=== PATIENT | female | born 1980 | race Caucasian/White ===

== ENCOUNTER 2025-02-14 19:02 | Outpatient (REF) | payer BC, SELFPAY ==
[2025-02-17 09:08] LABS: Age Gdln ACOG Testing Note (.); HPV Aptima Negative (Negative); IGP, Aptima HPV, rfx 16/18,45 Note (.)
== END 2025-02-14 19:03 | disposition home or self-care (01) ==
LOC: LAB 19:02
PROVIDERS: Visit Provider Physician Assistant
DX: Z01.419 Encounter for gynecological examination (general) (routine) without abnormal findings (principal)
CPT/HCPCS: 87624; 88175

== ENCOUNTER 2025-03-14 09:55 | Outpatient (OUT) | payer BC, SELFPAY ==
--- OUTSIDE RECORDS SUMMARY | 2025-03-14 09:59 | XMS_ITS | Encounter Summary ---
Author Organization [facility] Address [address] [facility] [place] [address] Care Team Providers Care Captain Waiter Name Role Phone Rolando Delgado DO Primary Care Provider Encounter Details Date Type Department Care Team (Late st Contact Info) Description 02/23/2025 Orders Only [facility] [address] [place] [id number] Dai Diego MS Social History Tobacco Use Types Packs/Day Years Used Date Smoking Tobacco: Never Smokeless Tobacco: Never Alcohol Use Standard Drinks/Week Comments Yes 2 (1 standard drink = 0.6 oz pur e alcohol) Comments Unknown Sex and Gender Information Value Date Recorded Sex Assigned at Not on file Legal Sex Female 7:02 PM EDT Gender Identity Not on file Sexual Orientation Not on file documented as of this encounter Plan of Treatment Not on file documented as of this encounter Procedures Procedure Name Priority Date/Time Associated Diagnosis Comments PAP SMEAR Routine 02/14/2025 12:00 AM EDT documented in this encounter Results * Pap Smear (02/14/2025 12:00 AM EDT) Swab Cervical swab / Unknown us [facility] CYTOLOGY ORDERABLES Final Re sult EXTERNAL LAB documented in this encounter Visit Diagnoses Not on filedocumented in this encounter Care Teams Captain Waiter Relationship Specialty Start Date End Date Rolando Delgado DO [address] [place] [address] PCP - General 05/14/23 documented as of this encounter
--- OUTSIDE RECORDS SUMMARY | 2025-03-14 09:59 | XMS_ITS | Clinical Summary ---
Author Organization [facility] Address [address] [place] [address] Care Team Providers Care Colorectal Surgeon Name Role Phone Rolando Delgado Primary Care Provider Allergies No known active allergies Medications oxybutynin XL (Ditropan-XL) 15 MG 24 hr tablet Take 15 mg by mouth Daily Do not crush, chew, or split. Active Desvenlafaxine ER 50 MG tablet sustained-releas e 24 hour Active meloxicam (Mobic) 15 MG tablet See Instruction s, TAKE 1 TABLET BY MOUTH EVERY DAY, # 30 tab(s), Refills(s) 0, Pharmacy: [id number], 155, cm, 11/18/24 9:00:00 EDT, Height/Evelyn th Dosing, 64.8, kg, 11/18/24 9:00:00 EDT, Weight Dosing 01/17/2025 Active fexofenadine (Lou) 60 MG tablet Take 60 mg by mouth Daily Active Encounters Date Type Department Care Team Description 02/23/2025 Orders Only [facility] [address] [place] [address] Dai Diego MA 02/14/2025 2:00 PM EDT Office Visit [facility] [address] [place] [address] Margy Melchor PA Well woman exam with routine gynecological exam; Encounter for screening mammogram for malignant neoplasm of breast; Urinary frequency 02/14/2025 Clinisync Result Encounter [facility] External Department Unsolicited Margy Melchor PA 02/14/2025 Bamboo flowsheet [facility] [address] [place] [address] Margy Melchor PA 02/13/2025 Travel from Last 3 Months Family History Medical History Relation Name Comments Diabetes Father Pepito Willis Migraines Mother Macrina Pequea Relation Name Status Comments Father Pepito Pequea Alive Mother Macrina Pequea Alive Social History Tobacco Use Types Packs/Day Years Used Date Smoking Tobacco: Never Smokeless Tobacco: Never Tobacco Cessation:Counseling Given: Not Answered Alcohol Use Standard Drinks/Week Comments Yes 2 (1 standard drink = 0.6 oz pur e alcohol) Comments Unknown Sex and Gender Information Value Date Recorded Sex Assigned at Not on file Legal Sex Female 7:02 PM EDT Gender Identity Not on file Sexual Orientation Not on file Last Filed Vital Signs Vital Sign Reading Time Taken Comments Blood Pressure 108/80 02/14/2025 2:28 PM EDT Pulse - - Temperature - - Respiratory Rate - - Oxygen Saturation - - Inhaled Oxygen Concentration - - Weight 65.7 kg (144 lb 12 oz) 02/14/2025 2:28 PM EDT Height - - Body Mass Index - - Plan of Treatment Health Maintenance Due Date Last Done Comments HPV/Cotest 2011 Mammogram 2021 Influenza Vaccine (#1) 2025 Cervical Cancer Screening 02/15/2028 Pap Smear 02/15/2028 02/14/2025 Procedures Procedure Name Priority Date/Time Associated Diagnosis Comments IGP,APTIMA HPV,AGE GDLN Routine 02/14/2025 2:11 PM EDT PAP SMEAR Routine 02/14/2025 12:00 AM EDT from Last 3 Months Results * IGP,APTIMA HPV,AGE GDLN (02/14/2025 2:11 PM EDT) AGE GDLN ACOG TESTING Note . [facility] Comment: TESTS RESULT FLAG UNITS REF RANGE LAB Clinician Provided Cytology Information Source.............Vagina No. of containers..01 ThinPrep Vial Age Maxine CLIFTON Helen... 3065 01 FLAG LEGEND: L-Low Normal,H-High Normal,LL-Alert Low,HH-Alert High <-Panic Low,>-Panic High,A-Abnormal,AA-Critical Abnormal Performed at: 01 =G [facility] [address] [place] [address] Sharon Vickers MD, IGP, APTIMA HPV, RFX 16/18,45 Note . [facility] Comment: TESTS RESULT FLAG UNITS REF RANGE LAB DIAGNOSIS: 02 NEGATIVE FOR INTRAEPITHELIAL LESION OR MALIGNANCY. Specimen adequacy: 02 Satisfactory for evaluation. No endocervical component is identified. Performed by: 02 Alexandra Valverde, Commissary Manager . 02 Note: Note 02 The Pap smear is a screening test designed to aid in the detection of premalignant and malignant conditions of the uterine cervix. It is not a diagnostic procedure and should not be used as the sole means of detecting cervical cancer. Both false-positive and false-negative reports do occur. Test Methodology: Note 02 This liquid based ThinPrep(R) pap test was screened with the use of an image guided system. HPV Genotype Reflex Note 02 Criteria not met, HPV Genotype not performed. FLAG LEGEND: L-Low Normal,H-High Normal,LL-Alert Low,HH-Alert High <-Panic Low,>-Panic High,A-Abnormal,AA-Critical Abnormal Performed at: [address] [id number] Sharon Vickers MD, HPV APTIMA Negative Negative [facility] Comment: This nucleic acid amplification test detects fourteen high- risk HPV types (16,18,31,33,35,39,45,51,52,56,58,59,66,68) without differentiation. Performed at: =[facility] [id number] Co[place] Drawer Hand: Sharon Vickers MD, Phone: [phone] Performed at: [address] [id number] Co[place] Drawer Hand: Sharon Vickers MD, Phone: [phone] 02/14/2025 2:11 PM EDT 02/14/2025 9:03 PM EDT Narrative [facility] - 02/17/2025 9:08 AM EDT SPATULA-ALONE VAGINA [facility] BLOOD ORDERABLES Final Resul t Performing Organization Address [facility]/ZIP Co de Phone Number [facility] TB * Pap Smear (02/14/2025 12:00 AM EDT) Swab Cervical swab / Unknown [facility] CYTOLOGY ORDERABLES Final Re sult Performing Organization Address [facility]/ZIP Co de Phone Number EXTERNAL LAB from Last 3 Months Insurance BCBS Care Teams Colorectal Surgeon Relationship Specialty Start Date End Date Rolando Delgado DO [facility] [facility] [address] [place] [address] PCP - General 05/14/23
--- OUTSIDE RECORDS SUMMARY | 2025-03-14 09:59 | XMS_ITS | Continuity of Care Document ---
Author Organization [facility] Address [address] [place] [id number] Insurance Providers Payer Plan Claims Address Claims Phone Policy Number Group Number Relation Employer Guarantor Name Guarantor Guarantor Address Guarantor Phone [employer] [id number] Self Argenis Murphy 1980 [address] [place] [address] [employer] [place] [address], [place] [address] tel:[phone] [id number] Self Argenis Murphy 1980 [address] [place] [address] Denta l [employer] [facility] Care[employer] our[employer] [address], [place] [address] tel:[phone] [facility] [id number] Self Argenis Murphy 1980 [address] [place] [address] Problems Condition ICD9 code ICD10 code SNOMED code Start Date End Date S tatus Encounter for screening for other metabolic disorders Z13.228 Results No Results Allergies, adverse reactions, alerts No known allergies and adverse reactions Medications No administered medications reported Vital Signs No vital signs reported Social History No smoking Hx information available
--- NOTE | 2025-03-14 10:04 | MM_ITS ---
Patient Name: CHELSEA MONTES MR#: [id number] : 1980 Exam Date: 03/14/2025 Ordering Doctor: CLARA BROWN . RADIOLOGY REPORT PROCEDURE: MM TOMOSYNTHESIS SCREENING BI COMPARISON: None. INDICATIONS: Screening Calculator Name NCI Breast Cancer Risk Assessment Tool 5 Year Breast Cancer Risk 0.50% Lifetime Breast Cancer Risk 7.10% Personal Breast Cancer No Personal Ovarian Cancer No Treatments None Family Cancers None LOCATION: [facility] BREAST COMPOSITION: There are scattered areas of fibroglandular density. FINDINGS: DIAGNOSTIC CATEGORY 0--INCOMPLETE: NEED ADDITIONAL IMAGING EVALUATION. RIGHT BREAST: No significant suspicious finding. LEFT BREAST: Focal asymmetry upper inner quadrant left breast, middle depth. RECOMMENDATIONS: ADDITIONAL MAMMOGRAPHIC VIEWS REQUIRED: LEFT BREAST - spot-compression/true lateral views, possible ultrasound recommended. PLEASE NOTE: A NORMAL MAMMOGRAM DOES NOT EXCLUDE THE POSSIBILITY OF BREAST CANCER. A CLINICALLY SUSPICIOUS PALPABLE LUMP SHOULD BE BIOPSIED. Dictated by: Elliot Oswald DO on 03/14/2025 at 15:52 Approved by: Elliot Oswald DO on 03/14/2025 at 15:56
== END 2025-03-14 09:56 | disposition home or self-care (01) ==
PROVIDERS: PCP Nurse Practitioner; Visit Provider Physician Assistant
DX: Z12.31 Encounter for screening mammogram for malignant neoplasm of breast (principal); R92.8 Other abnormal and inconclusive findings on diagnostic imaging of breast
CPT/HCPCS: 77063; 77067